=== PATIENT | male | born 1995 | race American Indian/Alaskan Native ===

== ENCOUNTER 2022-06-15 15:45 | Emergency (ER) | payer OTHER ==
[~2022-06-15] VITALS: Ht 189.2 cm; Wt 102.3 kg
[2022-06-15] MEDS ORDERED: LIDOcaine 1% 30ml preserv. free vial IJ ONE (19:00)
[2022-06-15] MEDS ORDERED: TETanus/Pertussis (Acell)/Diphther VAC/PF (Tdap-Adult) 0.5ml syringe IMVAC ONE (19:00)
[2022-06-15 19:06] VITALS: BP 141/82
== END 2022-06-15 20:03 | disposition home or self-care (01) ==
LOC: ER 15:47
DX: S01.81XA Laceration without foreign body of other part of head, initial encounter (principal); W22.8XXA Striking against or struck by other objects, initial encounter; Y93.89 Activity, other specified; Y92.89 Other specified places as the place of occurrence of the external cause; Y99.8 Other external cause status
CPT/HCPCS: 12011; 90471; 90715; 99283

== ENCOUNTER 2022-06-21 16:14 | Emergency (ER) | payer OTHER ==
[~2022-06-21] VITALS: Ht 189.2 cm; Wt 102.0 kg
[2022-06-21 16:17] VITALS: BP 128/78
== END 2022-06-21 17:53 | disposition home or self-care (01) ==
LOC: ER 16:15
DX: Z48.02 Encounter for removal of sutures (principal); S01.81XD Laceration without foreign body of other part of head, subsequent encounter; X58.XXXD Exposure to other specified factors, subsequent encounter
CPT/HCPCS: 99281